=== PATIENT | female | born 2000 | race Caucasian/White ===

== ENCOUNTER 2018-11-19 14:55 | Emergency (ER) | payer OTHER ==
--- NOTE | 2018-11-19 14:57 | PDOC ---
Rapid Medical Evaluation Time Seen by Provider: 11/19/18 14:56 Medical Evaluation: Allergies Allergy/AdvReac Type Severity Reaction Status Date / Time No Known Allergies Allergy Verified 11/13/15 18:44 11/19/18 14:56 HPI: Abdominal pain with nausea and diarrhea x 1 week PE: No gross deficits ORDERS: Labs U Preg Discharge Disposition - Diagnosis Abdominal pain - Referrals - Patient Instructions - Post Discharge Activity
[2018-11-19 15:00] VITALS: BMI 26.2
[2018-11-19 15:46] LABS: BASO % 0.7 % (0-2.0); EOS % 0.8 % (0-4.5); HEMATOCRIT 36.5 % (32.4-45.2); HEMOGLOBIN 11.8 GM/dL (10.7-15.3); LYMPH % 29.4 % (8-40); MCHC 32.2 g/dl (32.0-36.0); MEAN CELL VOLUME 83.8 fl (80-96); MEAN PLT VOLUME 9.3 fl (7.5-11.1); MONO % 6.9 % (3.8-10.2); NEUT % 62.2 % (42.8-82.8); PLATELET COUNT 254 K/MM3 (134-434); RBC 4.35 M/mm3 (3.60-5.2); RDW 14.2 % (11.6-15.6); WHITE BLOOD COUNT 6.8 K/mm3 (4.0-10.0)
[2018-11-19 16:00] LABS: ALBUMIN 4.1 g/dl (3.4-5.0); BILIRUBIN,TOTAL 0.3 mg/dL (0.2-1); BLOOD UREA NITROGEN 10.8 mg/dL (7-18); CALCIUM 9.2 mg/dL (8.5-10.1); CREATININE 0.7 mg/dL (0.55-1.3); POTASSIUM 4.4 mmol/L (3.5-5.1); TOT PROT 7.2 g/dl (6.4-8.2)
--- NOTE | 2018-11-19 16:11 | PDOC ---
History of Present Illness - General History Source: Patient Exam Limitations: No Limitations <Marina Valenciaecca - Last Filed: 11/19/18 18:17> <Kimberlee Rios - Last Filed: 11/21/18 09:40> - General Chief Complaint: Pain Stated Complaint: ABD. PAIN Time Seen by Provider: 11/19/18 14:56 Past History - Travel Traveled outside of the country in the last 30 days: No Close contact w/someone who was outside of country & ill: No - Past Medical History COPD: No Psychiatric Problems: Yes - Psycho Social/Smoking Cessation Hx Smoking Status: No Smoking History: Never smoked Number of Cigarettes Smoked Daily: 0 <SaraviriMarina cheekecca - Last Filed: 11/19/18 18:17> <Kimberlee Rios - Last Filed: 11/21/18 09:40> - Past Medical History Allergies/Adverse Reactions: Allergies Allergy/AdvReac Type Severity Reaction Status Date / Time No Known Allergies Allergy Verified 11/19/18 14:58 Home Medications: Ambulatory Orders Clozapine 300 mg PO HS 11/19/18 Ibuprofen 600 mg PO Q6H #30 tablet 11/19/18 Ondansetron [Zofran Odt -] 4 mg SL TID #10 od.tablet 11/19/18 Propranolol HCl 20 mg PO BID 11/19/18 Review of Systems - Review of Systems Able to Perform ROS?: Yes Comments:: 11/19/18 18:17 CONSTITUTIONAL: Absent: fever, chills, diaphoresis, generalized weakness, malaise, loss of appetite HEENT: Absent: rhinorrhea, nasal congestion, throat pain, throat swelling, difficulty swallowing, mouth swelling, ear pain, eye pain, visual Changes CARDIOVASCULAR: Absent: chest pain, loss of consciousness, palpitations, irregular heart rate, peripheral edema RESPIRATORY: Absent: cough, shortness of breath, dyspnea with exertion, orthopnea, wheezing, stridor, hemoptysis GASTROINTESTINAL: Present: abdominal pain, nausea, vomiting, diarrhea Absent: abdominal distension , constipation, melena, hematochezia GENITOURINARY: Absent: dysuria, frequency, urgency, hesitancy, hematuria, flank pain, genital pain MUSCULOSKELETAL: Absent: myalgia, arthralgia, joint swelling SKIN: Absent: rash, itching, pallor HEMATOLOGIC/IMMUNOLOGIC: Absent: easy bleeding, easy bruising, lymphadenopathy, frequent infections ENDOCRINE: Absent: unexplained weight gain, unexplained weight loss, heat intolerance, cold intolerance NEUROLOGIC: Absent: headache, focal weakness or paresthesias, dizziness, unsteady gait, seizure, mental status changes, bladder or bowel incontinence PSYCHIATRIC: Absent: anxiety, depression, suicidal or homicidal ideation, hallucinations. Is the patient limited Bahraini proficient: No <Margo Valencia - Last Filed: 11/19/18 18:17> *Physical Exam - Vital Signs Last Vital Signs Temp Pulse Resp BP Pulse Ox 98.9 F 57 L 18 105/69 99 11/19/18 14:58 11/19/18 14:58 11/19/18 14:58 11/19/18 14:58 11/19/18 14:58 - Physical Exam Comments: 11/19/18 18:18 GENERAL: Well developed, well nourished. Awake and alert. No acute distress. HEENT: Normocephalic, atraumatic. PERRLA, EOMI. No conjunctival pallor. Sclera are non- icteric. Moist mucous membranes. Oropharynx is clear. NECK: Supple. Full ROM. No JVD. Carotid pulses 2+ and symmetric, without bruits. No thyromegaly. No lymphadenopathy. CARDIOVASCULAR: Regular rate and rhythm. No murmurs, rubs, or gallops. Distal pulses are 2+ and symmetric. PULMONARY: No evidence of respiratory distress. Lungs clear to auscultation bilaterally. No wheezing, rales or rhonchi. ABDOMINAL: TTP of the RLQ and periumbilical region. Soft. Non-distended. No rebound or guarding. No organomegaly. Normoactive bowel sounds. MUSCULOSKELETAL Normal range of motion at all joints. No bony deformities or tenderness. No CVA tenderness. EXTREMITIES: No cyanosis. No clubbing. No edema. No calf tenderness. SKIN: Warm and dry. Normal capillary refill. No rashes. No jaundice. NEUROLOGICAL: Alert, awake, appropriate. Cranial nerves 2-12 intact. No deficits to light touch and temperature in face, upper extremities and lower extremities. No motor deficits in the in face, upper extremities and lower extremities. Normoreflexic in the upper and lower extremities. Normal speech. Toes are down- going bilaterally. Gait is normal without ataxia. PSYCHIATRIC: Cooperative. Good eye contact. Appropriate mood and affect. <Margo Valencia - Last Filed: 11/19/18 18:17> - Vital Signs Last Vital Signs Temp Pulse Resp BP Pulse Ox 98.6 F 64 16 94/67 98 11/19/18 18:25 11/19/18 18:25 11/19/18 18:25 11/19/18 18:25 11/19/18 18:25 <Kimberlee Rioshanh - Last Filed: 11/21/18 09:40> ED Treatment Course - LABORATORY CBC & Chemistry Diagram: 11/19/18 15:11 11/19/18 15:01 - ADDITIONAL ORDERS Additional order review: Laboratory Results 11/19/18 15:01 Sodium 139 Potassium 4.4 Chloride 104 Carbon Dioxide 28 Anion Gap 7 L BUN 10.8 Creatinine 0.7 Est GFR (CKD-EPI)AfAm 145.58 Est GFR (CKD-EPI)NonAf 125.60 Random Glucose 93 Calcium 9.2 Total Bilirubin 0.3 AST 12 L ALT 21 Alkaline Phosphatase 84 Total Protein 7.2 Albumin 4.1 Lipase 159 11/19/18 15:11 RBC 4.35 MCV 83.8 MCHC 32.2 RDW 14.2 MPV 9.3 Neutrophils % 62.2 Lymphocytes % 29.4 Monocytes % 6.9 Eosinophils % 0.8 Basophils % 0.7 <Margo Valencia - Last Filed: 11/19/18 18:17> - LABORATORY CBC & Chemistry Diagram: 11/19/18 15:11 11/19/18 15:01 - ADDITIONAL ORDERS Additional order review: 11/19/18 15:11 RBC 4.35 MCV 83.8 MCHC 32.2 RDW 14.2 MPV 9.3 Neutrophils % 62.2 Lymphocytes % 29.4 Monocytes % 6.9 Eosinophils % 0.8 Basophils % 0.7 - Medications Given in the ED: ED Medications Discontinued Medications Generic Name Dose Route Start Last Admin Trade Name Freq PRN Reason Stop Dose Admin Sodium Chloride 1,000 mls @ 1,000 mls/hr 11/19/18 16:12 11/19/18 16:43 Normal Saline - IV 11/19/18 17:11 1,000 mls/hr ASDIR STA Administration Ondansetron HCl 4 mg 11/19/18 16:12 11/19/18 16:43 Zofran Odt - SL 11/19/18 16:13 4 mg ONCE ONE Administration <Kimberlee Rios - Last Filed: 11/21/18 09:40> Medical Decision Making - Medical Decision Making 11/19/18 18:19 The patient is a 17 y/o F who presents to the ER for abdominal pain, nausea, vomiting and diarrhea for one week. The patient states that her symptoms have been crampy and intermittent. <Margo Valencia - Last Filed: 11/19/18 18:17> - Medical Decision Making 11/21/18 09:40 The patient was seen and evaluated in conjunction with midlevel provider under my direct supervision, ancillary studies were reviewed. I agree with the plan as outlined PA Erik. HPI, workup/dispo as outlined. VS reviewed, wnl. labs unremarkable. imaging with recent ovarian cyst rupture suspected, no abdominal pathology noted. anticipate discharge, pcp followup, return precautions <Kimberlee Rios - Last Filed: 11/21/18 09:40> *DC/Admit/Observation/Transfer - Discharge Dispostion Decision to Admit order: No <Margo Valencia - Last Filed: 11/19/18 18:17> <Cyndie Riosie Herrera - Last Filed: 11/21/18 09:40> Diagnosis at time of Disposition: Ovarian cyst Qualifiers: Laterality: right Qualified Code(s): N83.201 - Unspecified ovarian cyst, right side - Discharge Dispostion Disposition: HOME Condition at time of disposition: Stable - Prescriptions Prescriptions: Ibuprofen 600 mg PO Q6H #30 tablet Ondansetron [Zofran Odt -] 4 mg SL TID #10 od.tablet - Referrals Referrals: Turner Slater MD [Primary Care Provider] - - Patient Instructions Printed Discharge Instructions: DI for Ovarian Cyst Additional Instructions: Your pain is most likely due to the ovarian cyst that ruptured which is seen on CT and a viral illness Take ibuprofen 600mg every 6 hours as needed for pain Take the zofran every 8 hours as needed for nausea or vomiting Eat a brat diet to help with the diarrhea (plain toast, applesauce, rice, bananas) Follow up with your primary care provider this week for further evaluation Return to the ER for any new or worsening symptoms - Post Discharge Activity Forms/Work/School Notes: Back to Work Discharge <Margo Valencia - Last Filed: 11/19/18 18:17> - Discharge Information Problems reviewed: Yes <Kimberlee Rios - Last Filed: 11/21/18 09:40> - Discharge Information Clinical Impression/Diagnosis: Ovarian cyst Qualifiers: Laterality: right Qualified Code(s): N83.201 - Unspecified ovarian cyst, right side Condition: Stable Disposition: HOME - Additional Discharge Information Prescriptions: Ibuprofen 600 mg PO Q6H #30 tablet Ondansetron [Zofran Odt -] 4 mg SL TID #10 od.tablet - Follow up/Referral Referrals: Turner Slater MD [Primary Care Provider] - - Patient Discharge Instructions Patient Printed Discharge Instructions: DI for Ovarian Cyst Additional Instructions: Your pain is most likely due to the ovarian cyst that ruptured which is seen on CT and a viral illness Take ibuprofen 600mg every 6 hours as needed for pain Take the zofran every 8 hours as needed for nausea or vomiting Eat a brat diet to help with the diarrhea (plain toast, applesauce, rice, bananas) Follow up with your primary care provider this week for further evaluation Return to the ER for any new or worsening symptoms - Post Discharge Activity Work/Back to School Note: Back to Work
[2018-11-19] MEDS ORDERED: SODIUM CHLORIDE 1,000 ML IV STA (16:12)
[2018-11-19] MEDS ORDERED: ONDANSETRON *ODT* 4 MG TABLET SL ONE (16:12)
[2018-11-19] MEDS ORDERED: ONDANSETRON *ODT* 4 MG TABLET ONE (16:35)
[2018-11-19 17:35] LABS: PH,URINE 6.5 (5.0-8.0); URINE APPEARANCE CLEAR; URINE BILIRUBIN NEGATIVE (NEGATIVE); URINE COLOR YELLOW; URINE GLUCOSE (UA) NEGATIVE (NEGATIVE); URINE KETONE NEGATIVE (NEGATIVE); URINE LEUK ESTERASE TRACE (NEGATIVE); URINE NITRITE NEGATIVE (NEGATIVE); URINE PROTEIN NEGATIVE (NEGATIVE); URINE UROBILINOGEN 0.2 mg/dL (0.2-1.0)
[2018-11-19 18:27] VITALS: BP 94/67; PULSE 64; TEMP 98.6
[2018-11-19 19:06] LABS: EPI CELLS 2.5 /HPF (0-5/HPF); HYALINE CASTS 1.48 /lpf (0-8); URINE BACTERIA 75.7 /hpf (NEGATIVE); URINE RBC 2.4 /hpf (0-4); URINE WBC 11.7 /hpf (0-5)
--- NOTE | 2018-11-20 11:05 | EKG ---
Test Reason : Blood Pressure : / mmHG Vent. Rate : 054 BPM Atrial Rate : 054 BPM P-R Int : 148 ms QRS Dur : 080 ms QT Int : 400 ms P-R-T Axes : 049 003 025 degrees QTc Int : 379 ms SINUS BRADYCARDIA WITH SINUS ARRHYTHMIA OTHERWISE NORMAL ECG NO PREVIOUS ECGS AVAILABLE Confirmed by JOHNNIE TEMPLE, CATALINA ([id number]) on 11/20/2018 11:05:23 AM Referred By: Confirmed By:CATALINA BLAIR MD
== END 2018-11-19 18:30 | disposition home or self-care (01) ==
LOC: JER 14:55
PROC: 3E0337Z Introduction of Electrolytic and Water Balance Substance into Peripheral Vein, Percutaneous Approach (ICD-10-PCS; principal; 2018-11-19)
DX: N83.201 Unspecified ovarian cyst, right side (principal)
CPT/HCPCS: 36415; 74177-TC; 80053; 81003; 83690; 84703; 85025; 93005; 93010; 99283-25; J7030; Q0162